=== PATIENT | female | born 1945 | race Native Hawaiian/Other Pacific Islander ===

== ENCOUNTER 2017-10-03 17:57 | Emergency (ER) | payer MEDICAID ==
[~2017-10-03] VITALS: Ht 160 cm; Wt 78.0 kg
[2017-10-03 17:59] VITALS: BP 197/84; PULSE 69; RESP 15; TEMP 98.8; O2SAT 96
[2017-10-03] MEDS ORDERED: RAMI2.5C PO (19:51)
[2017-10-03] MEDS ORDERED: LYRI50CA PO (19:51)
[2017-10-03] MEDS ORDERED: GLIM2TAB PO (19:51)
[2017-10-03] MEDS ORDERED: ALLO100T PO (19:51)
[2017-10-03] MEDS ORDERED: FENO145T2 PO (19:51)
[2017-10-03] MEDS ORDERED: METO50TA PO (19:51)
[2017-10-03] MEDS ORDERED: MACR100C3 PO (19:51)
[2017-10-03] MEDS ORDERED: FURO1TAB60 PO (19:51)
[2017-10-03] MEDS ORDERED: SODIUM CHLORIDE 0.9% FLUSH 10 ML FLUSH IV FLUSH PRN (20:00)
[2017-10-03 20:13] LABS: BASOPHIL # 0.1 TH/MM3 (0-0.2); BASOPHIL % 0.8 % (0.0-2.0); EOSINOPHIL # 0.2 TH/MM3 (0-0.4); EOSINOPHIL % 2.4 % (0.0-4.0); HEMATOCRIT 36.2 % (35.0-46.0); HEMOGLOBIN 12.2 GM/DL (11.6-15.3); LYMPH % 21.3 % (9.0-44.0); LYMPHOCYTE # 1.6 TH/MM3 (1.0-4.8); MEAN CELL VOLUME 86.5 FL (80.0-100.0); MEAN CORPUSCULAR HGB CONC 33.6 % (32.0-36.0); MEAN PLATELET VOLUME 8.9 FL (7.0-11.0); MONO % 10.6 % (0.0-8.0); MONOCYTE # 0.8 TH/MM3 (0-0.9); NEUT % 64.9 % (16.0-70.0); PLATELET COUNT 193 TH/MM3 (150-450); RED BLOOD COUNT 4.19 MIL/MM3 (4.00-5.30); RED CELL DISTRIBUTION WIDTH 13.9 % (11.6-17.2); WHITE BLOOD COUNT 7.6 TH/MM3 (4.0-11.0)
[2017-10-03 20:24] LABS: AST (GOT) 7 U/L (15-37); BICARBONATE 33.1 MEQ/L (21.0-32.0); BLOOD UREA NITROGEN 40 MG/DL (7-18); CALCIUM 8.7 MG/DL (8.5-10.1); CHLORIDE 104 MEQ/L (98-107); CREATININE 2.13 MG/DL (0.50-1.00); GLOMERULAR FILTRATION RATE 23 ML/MIN (>89); GLUCOSE,RANDOM 100 MG/DL (74-106); SODIUM (NA) 144 MEQ/L (136-145)
--- NOTE | 2017-10-03 20:24 | PD ---
HPI Chief Complaint: Flank/Kidney Pain Time Seen by Provider: 19:40 Travel History International Travel<30 days: No Contact w/Intl Traveler<30days: No Traveled to known affect area: No History of Present Illness HPI 71-year-old female with chronic interstitial cystitis, on Macrobid, here for evaluation of bilateral flank pain. The patient has had the pain for the last 3 -4 days, described as sharp. 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 No fevers or chills. No nausea or vomiting. Pain is sharp, moderate, no modifying factors. PFSH Past Medical History Diabetes: Yes Patient Takes Glucophage: No Genitourinary: Yes (FREQUENT UTI) Hypertension: Yes Triglycerides - High: Yes Tetanus Vaccination: Unknown Influenza Vaccination: No Past Surgical History Surgical History: No Previous Surgery Social History Alcohol Use: No Tobacco Use: No Substance Use: No Allergies-Medications (Allergen,Severity, Reaction): Coded Allergies: Vehhfwz-Uzz-Mxo Reductase Inhibitor (Unverified Adverse Reaction, Intermediate, 10/03/17) Reported Meds & Prescriptions Reported Meds & Active Scripts Active Reported Macrodantin (Nitrofurantoin Macrocrystal) 100 Mg Cap 100 Mg PO BID Lyrica (Pregabalin) 50 Mg Cap 50 Mg PO BID Ramipril 2.5 Mg Cap 2.5 Mg PO DAILY Metoprolol Tartrate 50 Mg Tab 50 Mg PO DAILY Fenofibrate 145 Mg Tab 145 Mg PO DAILY Lasix (Furosemide) 40 Mg Tab 40 Mg PO DAILY Glimepiride 2 Mg Tab 2 Mg PO DAILY Take with breakfast or first main meal Allopurinol 100 Mg Tab 100 Mg PO DAILY Review of Systems Except as stated in HPI: all other systems reviewed are Neg Physical Exam Narrative GENERAL: Well-developed, well-nourished, comfortable, no apparent distress. SKIN: Focused skin assessment warm/dry. No rash. HEAD: Atraumatic. Normocephalic. EYES: Pupils equal and round. No scleral icterus. No injection or drainage. ENT: No nasal bleeding or discharge. Mucous membranes pink and moist. NECK: Trachea midline. No JVD. CARDIOVASCULAR: Regular rate and rhythm. No murmur appreciated. RESPIRATORY: No accessory muscle use. Clear to auscultation. Breath sounds equal bilaterally. GASTROINTESTINAL: Abdomen soft, non-tender, nondistended. MUSCULOSKELETAL: No obvious deformities. No clubbing. No cyanosis. No edema. No midline vertebral step-off or tenderness. Mild bilateral CVA tenderness. NEUROLOGICAL: Awake and alert. No obvious cranial nerve deficits. Motor grossly within normal limits. Normal speech. PSYCHIATRIC: Appropriate mood and affect; insight and judgment normal. Data Data Last Documented VS Vital Signs Date Time Temp Pulse Resp B/P (MAP) Pulse Ox O2 Delivery O2 Flow Rate FiO2 10/03/17 17:59 98.8 69 15 197/84 (121) 96 Orders Orders Complete Blood Count With Diff (10/03/17 19:46) Comprehensive Metabolic Panel (10/03/17 19:46) Prothrombin Time / Inr (Pt) (10/03/17 19:46) Act Partial Throm Time (Ptt) (10/03/17 19:46) Urinalysis - C+S If Indicated (10/03/17 19:46) Ct Abd/Pel W/O Iv Contrast (10/03/17 19:46) Iv Access Insert/Monitor (10/03/17 19:46) Ecg Monitoring (10/03/17 19:46) Oximetry (10/03/17 19:46) Sodium Chloride 0.9% Flush (Ns Flush) (10/03/17 20:00) Creatine Kinase (Cpk) (10/03/17 19:46) Urine Culture (10/03/17 19:50) Nitrofurantoin Monohyd Macrocr (Macrobid (10/03/17 21:15) Labs Laboratory Tests Test 10/03/17 19:50 White Blood Count 7.6 TH/MM3 Red Blood Count 4.19 MIL/MM3 Hemoglobin 12.2 GM/DL Hematocrit 36.2 % Mean Corpuscular Volume 86.5 FL Mean Corpuscular Hemoglobin 29.0 PG Mean Corpuscular Hemoglobin Concent 33.6 % Red Cell Distribution Width 13.9 % Platelet Count 193 TH/MM3 Mean Platelet Volume 8.9 FL Neutrophils (%) (Auto) 64.9 % Lymphocytes (%) (Auto) 21.3 % Monocytes (%) (Auto) 10.6 % Eosinophils (%) (Auto) 2.4 % Basophils (%) (Auto) 0.8 % Neutrophils # (Auto) 5.0 TH/MM3 Lymphocytes # (Auto) 1.6 TH/MM3 Monocytes # (Auto) 0.8 TH/MM3 Eosinophils # (Auto) 0.2 TH/MM3 Basophils # (Auto) 0.1 TH/MM3 CBC Comment DIFF FINAL Differential Comment Prothrombin Time 10.0 SEC Prothromb Time International Ratio 1.0 RATIO Activated Partial Thromboplast Time 22.8 SEC Urine Color YELLOW Urine Turbidity CLEAR Urine pH 5.5 Urine Specific [place] 1.011 Urine Protein 100 mg/dL Urine Glucose (UA) NEG mg/dL Urine Ketones NEG mg/dL Urine Occult Blood NEG Urine Nitrite NEG Urine Bilirubin NEG Urine Urobilinogen LESS THAN 2.0 MG/DL Urine Leukocyte Esterase MOD Urine RBC 1 /hpf Urine WBC 15 /hpf Urine Squamous Epithelial Cells <1 /hpf Urine Bacteria FEW /hpf Urine Hyaline Casts 3 /lpf Urine Mucus FEW /lpf Microscopic Urinalysis Comment CULTURE INDICATED Blood Urea Nitrogen 40 MG/DL Creatinine 2.13 MG/DL Random Glucose 100 MG/DL Total Protein 7.4 GM/DL Albumin 4.0 GM/DL Calcium Level 8.7 MG/DL Alkaline Phosphatase 99 U/L Aspartate Amino Transf (AST/SGOT) 7 U/L Alanine Aminotransferase (ALT/SGPT) 8 U/L Total Bilirubin 0.5 MG/DL Sodium Level 144 MEQ/L Potassium Level 3.8 MEQ/L Chloride Level 104 MEQ/L Carbon Dioxide Level 33.1 MEQ/L Anion Gap 7 MEQ/L Estimat Glomerular Filtration Rate 23 ML/MIN Total Creatine Kinase 35 U/L MDM Medical Decision Making Medical Screen Exam Complete: Yes Emergency Medical Condition: Yes Differential Diagnosis Pyelonephritis, nephrolithiasis, ureterolithiasis, UTI, rhabdomyolysis, metabolic abnormality, renal insufficiency Narrative Course Vital signs reviewed. CBC is unremarkable. CMP is remarkable for BUN 40, creatinine 2.13, GFR 23. This is around her baseline according to the patient and the patient's daughter. UA: 100 protein, moderate leukocyte esterase, 15 WBCs, few bacteria, few mucus. CT abdomen pelvis: CONCLUSION: 1. No stones or structural uropathy of either kidney. 2. There are scattered low and intermediate density masses of both kidneys. Please see above. Nonemergent workup with abdomen MRI with and without contrast recommended. 3. Diverticulosis of the colon without evidence of diverticulitis. Moderate to large amount of stool in the rectum. Nonobstructive pattern. Both the patient and the patient's daughter were made aware of all findings. The patient is resting comfortably. They state that they are mainly here for refill of her Macrobid as she is out of this medication and believe she may need it. She does have signs of a UTI on UA and has history of chronic interstitial cystitis. I will give her a refill of her Macrobid. She is stable for discharge home with outpatient follow-up with her primary care physician this week. She was advised on when to return to the emergency department. She verbalizes understanding and agreement with plan. Diagnosis Primary Impression: Chronic renal insufficiency Qualified Codes: N18.9 - Chronic kidney disease, unspecified Additional Impressions: Interstitial cystitis Renal cyst Referrals: Primary Care Physician 3 days Additional Instructions: Follow-up with your primary care physician this week. Return to the emergency department for worsening symptoms or any other concerns. Scripts Nitrofurantoin Monohydrate Macrocrystals (Macrobid) 100 Mg Cap 100 MG PO BID for Infection for 14 Days, #28 CAP 0 Refills Prov: Satya Tyler MD 10/03/17 Disposition: 01 DISCHARGE HOME Condition: Stable Satya Tyler MD Oct 03, 2017 20:24
[2017-10-03 20:25] LABS: ALT (GPT) 8 U/L (10-53)
[2017-10-03 20:26] LABS: BACTERIA, URINE FEW /hpf; BILIRUBIN, URINE NEG (NEG); BLOOD, URINE NEG (NEG); GLUCOSE,URINE NEG (NEG); HYALINE CAST, URINE 3 /lpf (RARE); KETONE, URINE NEG (NEG); MUCUS URINE FEW /lpf (OCC); NITRITE,URINE NEG (NEG); PH, URINE 5.5 (5.0-8.5); SQUAMOUS EPITHELIAL CELL URINE <1 /hpf (0-5); URINE LEUKOCYTE ESTERASE MOD (NEG)
[2017-10-03 20:27] LABS: ALKALINE PHOSPHATASE 99 U/L (45-117); TOTAL BILIRUBIN ADULT 0.5 MG/DL (0.2-1.0); TOTAL PROTEIN 7.4 GM/DL (6.4-8.2); URINE COLOR YELLOW (YELLW/STRAW)
--- NOTE | 2017-10-03 20:39 | RADRPT ---
EXAM DATE/TIME: 10/03/2017 20:12 [facility] COMPARISON: No previous studies available for comparison. INDICATIONS : Bilateral flank pain past 4 days. ORAL CONTRAST: No oral contrast ingested. RADIATION DOSE: 18.71 CTDIvol (mGy) MEDICAL HISTORY : Hypertension. Diabetes mellitus type 2. SURGICAL HISTORY : None. ENCOUNTER: Initial ACUITY: 4 - 6 days PAIN SCALE: 6/10 LOCATION: Bilateral flank TECHNIQUE: Volumetric scanning of the abdomen and pelvis was performed. Using automated exposure control and ad justment of the mA and/or kV according to patient size, radiation dose was kept as low as reasonably achievable to obtain optimal diagnostic quality images. DICOM format image data is available electro nically for review and comparison. FINDINGS: LOWER LUNGS: The visualized lower lungs are clear. LIVER: Homogeneous density without lesion. There is no dilation of the biliary tree. No calcified gallston es. SPLEEN: Spleen size upper limits of normal 12.4 cm craniocaudal. No focal splenic lesion demonstrated. PANCREAS: Within normal limits. KIDNEYS: No renal or ureteral calculus or hydronephrosis/hydroureter. Multiple round low and intermediate dens ity masses are seen of both kidneys measuring up to 14 mm on the right and up to 20 mm on the left. T hese are probably simple and debris-filled cysts although solid masses are not excludable. ADRENAL GLANDS: Within normal limits. VASCULAR: There is no aortic aneurysm. BOWEL/MESENTERY: Rather florid diverticulosis seen of the sigmoid and descending portions of the colon but no evidence of diverticulitis. Moderate to large amount of stool in the rectum at the time of imaging. ABDOMINAL WALL: Within normal limits. RETROPERITONEUM: There is no lymphadenopathy. BLADDER: No wall thickening or mass. REPRODUCTIVE: Within normal limits. INGUINAL: There is no lymphadenopathy or hernia. MUSCULOSKELETAL: No acute bony abnormality demonstrated. L4 vertebral body benign hemangioma noted. CONCLUSION: 1. No stones or structural uropathy of either kidney. 2. There are scattered low and intermediate density masses of both kidneys. Please see above. Nonemer gent workup with abdomen MRI with and without contrast recommended. 3. Diverticulosis of the colon without evidence of diverticulitis. Moderate to large amount of stool in the rectum. Nonobstructive pattern. Chris Guthrie MD on October 03, 2017 at 20:33 Board Certified Radiologist. This report was verified electronically.
[2017-10-03] MEDS ORDERED: MACR100C2 PO (21:08)
[2017-10-03] MEDS ORDERED: NITROFURANTOIN MONOHYD MACROCR 100 MG CAP PO ONE (21:15)
== END 2017-10-03 21:33 | disposition home or self-care (01) ==
LOC: NEPD 17:57
DX: I12.9 Hypertensive chronic kidney disease with stage 1 through stage 4 chronic kidney disease, or unspecified chronic kidney disease (principal); N18.9 Chronic kidney disease, unspecified; E11.22 Type 2 diabetes mellitus with diabetic chronic kidney disease; N30.10 Interstitial cystitis (chronic) without hematuria; N28.1 Cyst of kidney, acquired; K57.30 Diverticulosis of large intestine without perforation or abscess without bleeding; Z79.84 Long term (current) use of oral hypoglycemic drugs
CPT/HCPCS: 74176; 80053; 81001; 82550; 85025; 85610; 85730; 87086; 99285